=== PATIENT | female | born 1970 | race Caucasian/White ===

== ENCOUNTER 2023-08-15 17:32 | Emergency (ER) | payer OTHER, SELFPAY ==
[2023-08-15 17:46] VITALS: BP 140/82
--- NOTE | 2023-08-15 20:43 | ED.MUSCINJ ---
HPI-Injury
General
Chief Complaint: Fall
Source: patient
Exam Limitations: none
Time Seen by Provider: 08/15/23 20:25
Travel History
Have you had any contact with someone who has COVID-19?: No
Do you have any symptoms of coronavirus? Fever > 100 degrees, chills, cough, shortness of breath, sore throat, loss of taste or smell, muscle aches, or headache?: No
History of Present Illness-Injury
Initial Injury comments:
53-year-old female presents complaining of worsening left chest wall pain starting 6 days ago. She fell off a chair onto her side. No headache. No neck pain. No difficulty breathing. She has been trying ibuprofen or naproxen Salonpas without
any relief.
Past History
Past History
ED Past Medical History: Hypothyroidism, Psychiatric (Post traumatic stress disorder, chronic alcohol abuse, previous medication overdoses, suicide attempts.), Other (Acetaminophen overdose.) and Other (History of back pain, chronic alcoholism)
ED Past Surgical History: Appendectomy and Other (Post reduction and 2001)
Social History
Tobacco: Smoker
Alcohol: Former
Drug: None
Personal: Single
Living: assisted living (Resides in a psychiatric intermediate)
Employment: Disabled
Family History
Family History: Other (Noncontributory)
Phy Exam
Physical Exam
Physical Exam:
General: Well-appearing female no acute respiratory distress
Musculoskeletal exam: Spine is nontender. Left lateral anterior chest wall is tender without step-off or deformity. No ecchymosis or swelling
Heart: Regular rate and rhythm no murmurs
Lungs: Clear to auscultation bilaterally no wheezing
Abdomen is soft nontender nondistended no guarding or rebound
Injury Course
Orders/Labs/Results
Orders:
Orders
08/15/23 17:54
Ribs, Left 3 View W/PA Chest CR [CR Ribs-left 3 Vw W/pa Chest] Urgent
Comment:
Reason For Exam: left rib pain s/p fall
08/15/23 20:38
Oxycodone/Acetaminophen [Percocet 5/325] 1 tablet PO NOW STA
MDM/Problems Addressed
Differential Diagnosis Includes:
Left chest wall pain after a fall. Differential could include contusion versus rib fracture versus pneumothorax. No abdominal tenderness to intra-abdominal injury.
Left rib series was ordered through triage which have personally visualized and demonstrates nondisplaced anterior lateral fifth rib fracture without associated pneumothorax.
Cwza-fgw-hazwyaq medications are not helping. Will prescribe short course of pain medicine for. Recommended continued conservative treatment otherwise. Return precautions were given
*Critical Care Note
Total Time (30-74mins, 75-104mins- exclusive of procedures): Not Applicable
ED Attending Note
-
Portions of this chart may have been created with voice recognition software.� Occasional wrong word or��sound alike� substitutions may have occurred due to the inherent limitations of voice recognition software.
Discharge Plan
Departure
Patient Disposition: Home (Routine Discharge)
Date of Disposition: 08/15/23
Time of Disposition: 20:45
Patient with high blood pressure during this ER visit?: No
Discharge Problem:
Fracture of rib
Instructions: Rib Fracture (DC)
Prescriptions:
New
oxycodone-acetaminophen [Percocet] 5-325 mg tablet
1 tab PO Q6HPRN PRN (Reason: pain) Qty: 10 0RF
No Action
trazodone 50 MG tablet
50 mg PO HS
topiramate 200 MG tablet
200 mg PO BID
levothyroxine 175 MCG tablet
175 mcg PO DAILY
clonazepam 1 MG tablet
1 mg PO TID
duloxetine [Cymbalta] 30 MG capsule,delayed release(DR/EC)
30 mg PO DAILY
metronidazole 500 MG tablet
500 mg PO TID Qty: 21 0RF
levofloxacin 500 MG tablet
500 mg PO DAILY Qty: 7 0RF
Activity Restrictions/Additional Instructions:
Avoid heavy lifting or twisting. Use pain medicine as prescribed as needed for severe pain. Please return here for shortness of breath fever or other concerning finding. Follow-up with family doctor otherwise
[2023-08-15] MEDS: PERCOCET 5/325 1 TABLET PO (21:00)
[2023-08-15 21:11] VITALS: BP 149/77
== END 2023-08-15 21:13 | disposition home or self-care (01) ==
LOC: EMR 17:32
PROVIDERS: EMERGENCY PHYSICIAN Emergency Medicine; FAMILY PHYSICIAN Nurse Practitioner Family
DX: S22.32XA Fracture of one rib, left side, initial encounter for closed fracture (principal); F17.200 Nicotine dependence, unspecified, uncomplicated; W07.XXXA Fall from chair, initial encounter
CPT/HCPCS: 99283; 71101